=== PATIENT | male | born 1990 | race Caucasian/White ===

== ENCOUNTER 2022-03-05 12:15 | Emergency (ER) | payer MEDICAID ==
[~2022-03-05] VITALS: Ht 175.3 cm; Wt 103.7 kg
[~2022-03-05 12:15] MED LIST: NO HOME MEDS
[2022-03-05 16:56] VITALS: BP 119/77
== END 2022-03-05 17:16 | disposition home or self-care (01) ==
LOC: ER 12:15
DX: S00.83XA Contusion of other part of head, initial encounter (principal); R51.9 Headache, unspecified; M54.2 Cervicalgia; Z88.1 Allergy status to other antibiotic agents; Z88.5 Allergy status to narcotic agent; Z88.8 Allergy status to other drugs, medicaments and biological substances; W19.XXXA Unspecified fall, initial encounter; Y93.89 Activity, other specified; Y92.89 Other specified places as the place of occurrence of the external cause; Y99.8 Other external cause status
CPT/HCPCS: 70450; 99284

== ENCOUNTER 2024-12-04 10:43 | Outpatient (CLI) | payer MEDICAID | END 2024-12-04 23:59 | disposition home or self-care (01) | LOC: MRI02 10:43 | PROVIDERS: ATTEND Podiatrist Foot & Ankle Surgery | DX: M25.472 Effusion, left ankle (principal); M21.6X2 Other acquired deformities of left foot; M25.572 Pain in left ankle and joints of left foot; M79.672 Pain in left foot | CPT/HCPCS: 73721 ==

== ENCOUNTER 2025-08-29 13:35 | Outpatient (CLI) | payer MEDICAID ==
--- NOTE | 2025-08-29 14:17 | RADIOLOGY REPORT ---
CLINICAL HISTORY: LOCALIZED EDEMA TECHNIQUE: Helical scanning was performed of the head from the skull base to the vertex. Multiplanar reconstructions were performed. This exam was performed according to our departmental dose optimization program. Up-to-date CT equipment and radiation dose reduction techniques are utilized as appropriate. CTDI 54 DLP 956 COMPARISON: None FINDINGS: There is no evidence for acute intracranial hemorrhage, acute ischemic changes, mass, mass effect, or extra-axial fluid collection. There is no hydrocephalus or midline shift. There is no effacement of the cerebral sulci and basal subarachnoid cisterns. The lowe-white matter differentiation is well maintained. The imaged paranasal sinuses are clear. IMPRESSION: NO ACUTE INTRACRANIAL ABNORMALITY SEEN.
--- NOTE | 2025-08-29 14:57 | RADIOLOGY REPORT ---
COMPUTERIZED TOMOGRAPHY OF THE NECK WITH INTRAVENOUS CONTRAST CLINICAL HISTORY: LOCALIZED EDEMA COMPARISON: CT CT HEAD on DOS: 08/29/25 TECHNIQUE: The exam was performed on a multidetector scanner. Thin section spiral scans were acquired from the external auditory canals to the thoracic inlet during the bolus intravenous administration of contrast material. 2-D coronal and sagittal reformatted images were provided. Radiation optimization: All CT scans at this facility use at least one of these dose optimization techniques: Automated exposure control mA and/or kV adjustment per patient size (includes targeted exams where dose is matched to clinical indication) or iterative reconstruction. RADIATION DOSE: CTDI: 16 mGy DLP: 454 mGy-cm FINDINGS: The airway is symmetric and patent. No dominant masses or pathologically enlarged cervical lymph nodes are identified. There are numerous tiny lymph nodes in the submandibular region and anterior neck bilaterally without pathologic enlargement or abnormal morphology. The salivary and thyroid glands are within normal limits. The parotid glands and submandibular glands appear mildly prominent but within normal limits and with normal morphology. There are 2 punctate metallic markers indicating areas of concern, one superficial to the left parotid gland and one superficial to the left sub mandibular gland. No edema or inflammatory fat stranding is identified. Visualized posterior fossa is unremarkable. Visualized thoracic apices are clear. IMPRESSION: Essentially normal CT of the neck. The two metallic markers indicating areas of concern localized to the left parotid gland in the left submandibular gland. While the parotid and submandibular salivary glands appear mildly prominent, they remain symmetric, within normal limits for size, and demonstrate normal morphology.
== END 2025-08-29 23:59 | disposition home or self-care (01) ==
LOC: RAD 13:35
PROVIDERS: ATTEND Student in an Organized Health Care Education/Training Program
DX: R60.0 Localized edema (principal); R59.0 Localized enlarged lymph nodes
CPT/HCPCS: 70450; 70490